=== PATIENT | female | born 2000 | race Caucasian/White ===

== ENCOUNTER 2024-04-19 05:24 | Observation (INO) | payer OTHER ==
[2024-04-19 05:55] LABS: Basophils % (A) 0 %; Eosinophils # (A) 0.2 k/uL (0-0.7); Eosinophils % (A) 1 %; HCT 38.4 % (34.0-46.0); HGB 12.6 gm/dL (11.4-16.0); Lymphocytes % (A) 14 %; MCH 31.1 pg (25.0-35.0); MCHC 32.9 g/dL (31.0-37.0); MCV 94.5 fL (80.0-100.0); Mean Platelet Volume 8.3; Monocytes # (A) 0.5 k/uL (0-1.0); Monocytes % (A) 4 %; Neutrophils # (A) 11.3 k/uL (1.3-7.7); Neutrophils % (A) 80 %; Platelet Count 195 k/uL (150-450); RBC 4.07 m/uL (3.80-5.40); RDW 12.2 % (11.5-15.5); WBC 14.2 k/uL (3.8-10.6)
[2024-04-19] MEDS: fentaNYL (PF) 50 MCG/ML 2 ML AMP IVP STA (05:59)
[2024-04-19] MEDS: SODIUM CHLORIDE 0.9% 1,000 ML IV ONE ×2 (05:59→10:07)
[2024-04-19 06:04] LABS: INR 1.1 (<1.2); Partial Thromboplastin Time 23.9 sec (22.0-30.0); Prothrombin Time 11.7 sec (10.0-12.5)
[2024-04-19 06:11] LABS: ALT 13 U/L (4-34); AST 17 U/L (14-36); African American GFR (CKD) >90 (>60 ml/min/1.73 sqM); Albumin 4.3 g/dL (3.5-5.0); Alkaline Phosphatase 63 U/L (38-126); Anion Gap 10 mmol/L; Blood Urea Nitrogen 8 mg/dL (7-17); Calcium 8.9 mg/dL (8.4-10.2); Carbon Dioxide 15 mmol/L (22-30); Chloride 108 mmol/L (98-107); Glucose 125 mg/dL (74-99); Non-African American GFR(CKD) >90 (>60 ml/min/1.73 sqM); Potassium 3.4 mmol/L (3.5-5.1); Sodium 133 mmol/L (137-145); Total Bilirubin 0.5 mg/dL (0.2-1.3); Total Protein 6.5 g/dL (6.3-8.2)
[2024-04-19] MEDS: ONDANSETRON 4 MG/2 ML VIAL IVP STA ×2 (06:17→07:35)
[2024-04-19] MEDS: ACETAMINOPHEN IV (For NPO) 1,000 MG in EMPTY BAG 1 BAG IVPB STA (06:18)
[2024-04-19 06:27] LABS: HCG,Quantitative Serum 1222.5 mIU/mL
--- NOTE | 2024-04-19 07:28 | US ---
EXAMINATION TYPE: Ultrasound OB <= 14 weeks transvaginal DATE OF EXAM: 04/19/2024 7:09 AM COMPARISON: NONE CLINICAL INDICATION: Female, 23 years old with history of heavy vaginal bleeding, 13 w preg; LMP Unkn own. Heavy bleeding x 1 day. . TECHNIQUE: Transvaginal (TV) and Transabdominal (TA) with grayscale and color Doppler imaging includi ng first trimester . FINDINGS: EXAM MEASUREMENTS: GESTATIONAL AGE / DATING Physician Established: Not yet established Dates by LMP: LMP unknown Dates by First Scan: No previous this is first scan Dates by Current Scan for: No IUP seen at this time MATERNAL ANATOMY Uterus: 11.5 x 6.9 x 5.6cm Right Ovary: 4.0 x 3.0 x 1.5cm Left Ovary: not visualized Post CDS / Adnexa: wnl Presence of free fluid: No Presence of corpus luteal cyst: Yes in rt ovary measuring 1.6 x 1.2 x 1.1cm Presence of subchorionic bleed: No GESTATION / SURVEY CRL: not seen Gestational Sac morphology: not seen Gestational Sac MSD: not seen Yolk Sac (normal less than 6mm): not seen IUP: No IUP seen at this time Date of LMP: unknown Beta HcG (if available): 1222.5 Centrifuge Separator Tender notes: Endometrium appears empty. Cervix appears to be heterogeneous and enlarged. IMPRESSION: 1. No visualized intrauterine at this time. We note a low beta hCG value. Currently, differ ential considerations include too early to visualize intrauterine , failed , and no nvisualized ectopic . Recommend serial beta hCG and ultrasound follow-up. 2. Heterogeneous thickened appearance to the cervix. Etiology unclear. Consider direct visualization and assessment with findings on Pap smear. [facility], , 04/19/2024 7:25 AM
[2024-04-19] MEDS: HYDROmorphone 1 MG/ML 1 ML SYRINGE IVP STA (07:34)
--- NOTE | 2024-04-19 07:34 | ED ---
General Adult HPI - General Chief complaint: Vaginal Bleeding Stated complaint: Vaginal Bleeding, Nausea/Vomiting Time Seen by Provider: 04/19/24 05:32 Source: patient Mode of arrival: EMS - History of Present Illness Initial comments: Hx limited by acuity of condition. Pt is a previously well 23 y/o female believed to be approximately 13 weeks presenting for vaginal bleeding x 5-6 hours. Majority history provided by patient's . Patient started having cramping in lower abdomen about 5 hours prior to arrival. She went through 3 small pads and then sat on the toilet for the next 5 hours continuing to pass large amounts of blood clots. Denies any history of allergies. Patient has had 1 prior that ended in spontaneous . Patient denies any history of bleeding or clotting disorders. - Related Data Home Medications Medication Instructions Recorded Confirmed No Known Home Medications 04/19/24 04/19/24 Allergies Allergy/AdvReac Type Severity Reaction Status Date / Time Penicillins Allergy Unknown Verified 04/19/24 05:31 Childhood Review of Systems ROS Statement: Those systems with pertinent positive or pertinent negative responses have been documented in the HPI. Limitations: ROS unobtainable due to patients medical condition Past Medical History Past Medical History: No Reported History History of Any Multi-Drug Resistant Organisms: None Reported Past Surgical History: No Surgical Hx Reported Past Psychological History: No Psychological Hx Reported Smoking Status: Vaper Past Alcohol Use History: None Reported Past Drug Use History: None Reported General Exam - General Exam Comments Initial Comments: PE: CONSTITUTIONAL: Ill-appearing, in moderate distress, pale SKIN: Pale cool, damp skin, no jaundice, hives or petechiae EYES: Pupils are equally round, extraocular movements intact without nystagmus, clear conjunctiva, non-icteric sclera HENT: Normocephalic, atraumatic, moist mucus membranes, oropharynx clear without exudates NECK: , Full range of motion, normal appearance PULMONARY: Clear to auscultation without wheezes, rhonchi, or rales, normal excursion, no accessory muscle use and no stridor CARDIOVASCULAR: Regular rate, rhythm, normal S1 and S2. No appreciated murmurs, rubs or gallops. Strong radial pulses with intact distal perfusion. No lower extremity edema GASTROINTESTINAL: Soft, active bowel sounds throughout, diffusely tender non- distended, no palpable masses, guarding present, no hepatosplenomegaly GENITOURINARY: exam performed with MIKE Pascal as grinder tender, unable to visualize cervical os, external genitalia normal, dark red blood feels speculum upon insertion into the vaginal canal, no lacerations or lesions present MUSCULOSKELETAL: Extremities have no gross deformity, no edema, redness, or swelling. No calf swelling NEUROLOGIC:_a/o x 3, GCS 15, normal mentation and speech. Moves all extremities x 4 without motor or sensory deficit PSYCHIATRIC: Tearful mood and affect, thought process is clear and linear Course Vital Signs 04/19/24 04/19/24 04/19/24 05:26 05:40 06:47 Temperature 97.7 F Pulse Rate 91 87 91 Pulse Rate [ Right] Respiratory 18 22 18 Rate Blood Pressure 114/71 111/63 111/62 Blood Pressure [Right Arm] O2 Sat by Pulse 98 100 100 Oximetry 04/19/24 04/19/24 09:16 09:17 Temperature 97.7 F Pulse Rate 70 Pulse Rate [ 59 L Right] Respiratory 18 14 Rate Blood Pressure 106/59 Blood Pressure 113/55 [Right Arm] O2 Sat by Pulse 98 100 Oximetry - Reevaluation(s) Reevaluation #2: Discussed with Dr. Whittaker, he is on his way in for D&C. Patient remains vitally stable. 04/19/24 07:33 Medical Decision Making - Medical Decision Making Was pt. sent in by a medical professional or institution (, PA, SPORTS COORDINATOR, urgent care, hospital, or [facility]...) When possible be specific @ -No Did you speak to anyone other than the patient for history (EMS, parent, family, police, friend...)? What history was obtained from this source @Spoke with patient's who assisted in providing history Did you review nursing and triage notes (agree or disagree)? Why? @ -I reviewed and agree with nursing and triage notes Were old charts reviewed (outside hosp., previous admission, EMS record, old EKG, old radiological studies, urgent care reports/EKG's, [facility]cc records)? Report findings Medical records reviewed Differential Diagnosis (chest pain, altered mental status, abdominal pain women, abdominal pain men, vaginal bleeding, weakness, fever, dyspnea, syncope, headache, dizziness, GI bleed, back pain, seizure, CVA, palpatations, mental health, musculoskeletal)? @ -Differential Vaginal Bleeding: Spontaneous , threatened , molar , ectopic , bloody show, incompetent cervix, abruptioplacenta, placenta previa, uterine rupture, dysfunctional uterine bleeding, hemorrhage, uterine fibroids , this is not meant to be an all-inclusive list. EKG interpreted by me (3pts min.). @ -As above X-rays interpreted by me (1pt min.). @ -None done CT interpreted by me (1pt min.). @ -None done U/S interpreted by me (1pt. min.). @Empty gestational sac, heterogenous material within the uterus What testing was considered but not performed or refused? (CT, X-rays, U/S, labs)? Why? @ -None What meds were considered but not given or refused? Why? @ -None Did you discuss the management of the patient with other professionals (professionals i.e. , PA, SPORTS COORDINATOR, lab, RT, psych nurse, social scientist, senior billing consultant, teacher, global chief creative officer, hospice case manager)? Give summary @This case was discussed with Dr. Whittaker, obstetrics and gynecology, appreciate recs, requests H &H, US pelvis be obtained and he be called with results, will prepare to come in; when hemoglobin resulted an ultrasound was obtained and reviewed by myself again discussed with Dr. Whittaker, who is on his way in for likely D&C. Took patient to OR for D&C. Was smoking cessation discussed for >3mins.? @ -No. Was critical care preformed (if so, how long)? @ Yes 60 minutes, frequent reassessments, ordering and interpreting labs and imaging, discussion with consultants Were there social determinants of health that impacted care today? How? (Homelessness, low income, unemployed, alcoholism, drug addiction, transportation, low edu. Level, literacy, decrease access to med. care, mcc, rehab)? @ -No Was there de-escalation of care discussed even if they declined (Discuss DNR or withdrawal of care, Hospice)? @ -No What co-morbidities impacted this encounter? (DM, HTN, Smoking, COPD, CAD, Cancer, CVA, ARF, Chemo, Hep., AIDS, mental health diagnosis, sleep apnea, morbid obesity)? @ -None Was patient admitted / discharged? Hospital course, mention meds given and route, prescriptions, significant lab abnormalities, going to OR and other pertinent info. @Admission to obstetrics and gynecology- Patient is a 23-year-old previously healthy female G2, P0 presenting today for vaginal bleeding suspected to be 13 weeks . On assessment patient is pale and ill-appearing in moderate distress, painful and tearful. Vital signs are stable on arrival, no tachycardia, hypotension or hypoxemia noted. exam performed immediately shows dark red blood in the vaginal vault, unable to visualize cervix, no lacerations or lesions within the vagina, RNNaida chaperoned exam. Bedside ultrasound showed no free fluid in the abdomen. Beta- hCG, type and cross, comprehensive labs ordered. Pain control, 1 L normal saline ordered. Despite stable vital signs given patient's pale and ill appearance 1 unit uncrossed match red blood was ordered should patient decompensate. On-call hotel front office manager was paged to come in immediately for aden svaginal ultrasound. Paged Dr. Whittaker immediately as well, see above for details. On reassessment patient remained pale and painful, VSS, Hgb 12.6, though I suspect actually lower than this as patient continues to have dark red vaginal bleeding, no prior for comparison. HCG 1222.5. Additional pain control ordered. Reviewed US, see above. Dr. Whittaker to come in to likely take patient to OR. Updated patient and to findings and plan. All questions answered. Patient taken to OR in guarded but stable condition. Undiagnosed new problem with uncertain prognosis? @ -No Drug Therapy requiring intensive monitoring for toxicity (Heparin, Nitro, Insulin, Cardizem)? @ -No Were any procedures done? @ -No Diagnosis/symptom? @Inevitable Acute, or Chronic, or Acute on Chronic? @ Acute Uncomplicated (without systemic symptoms) or Complicated (systemic symptoms)? @ complicated Side effects of treatment? @ -No Exacerbation, Progression, or Severe Exacerbation? @ -No Poses a threat to life or bodily function? How? (Chest pain, [place], NE, pneumonia, PE, COPD, DKA, ARF, appy, cholecystitis, CVA, Diverticulitis, Homicidal, Suicidal, threat to staff... and all critical care pts) @ Yes, to continue untreated bleed ultimately resulting in hemorrhagic shock and potentially - Lab Data Result diagrams: 04/20/24 06:18 04/19/24 05:34 Lab Results 04/19/24 04/19/24 04/19/24 Range/Units 05:29 05:34 05:34 WBC 14.2 H (3.8-10.6) k/uL RBC 4.07 (3.80-5.40) m/uL Hgb 12.6 (11.4-16.0) gm/dL Hct 38.4 (34.0-46.0) % MCV 94.5 (80.0-100.0) fL MCH 31.1 (25.0-35.0) pg MCHC 32.9 (31.0-37.0) g/dL RDW 12.2 (11.5-15.5) % Plt Count 195 (150-450) k/uL MPV 8.3 Neutrophils % 80 % Lymphocytes % 14 % Monocytes % 4 % Eosinophils % 1 % Basophils % 0 % Neutrophils # 11.3 H (1.3-7.7) k/uL Lymphocytes # 2.0 (1.0-4.8) k/uL Monocytes # 0.5 (0-1.0) k/uL Eosinophils # 0.2 (0-0.7) k/uL Basophils # 0.0 (0-0.2) k/uL PT (10.0-12.5) sec INR (<1.2) APTT (22.0-30.0) sec Sodium 133 L (137-145) mmol/L Potassium 3.4 L (3.5-5.1) mmol/L Chloride 108 H (98-107) mmol/L Carbon Dioxide 15 L (22-30) mmol/L Anion Gap 10 mmol/L BUN 8 (7-17) mg/dL Creatinine 0.56 (0.52-1.04) mg/dL Est GFR (CKD-EPI)AfAm >90 (>60 ml/min/1.73 sqM) Est GFR (CKD-EPI)NonAf >90 (>60 ml/min/1.73 sqM) Glucose 125 H (74-99) mg/dL Calcium 8.9 (8.4-10.2) mg/dL Total Bilirubin 0.5 (0.2-1.3) mg/dL AST 17 (14-36) U/L ALT 13 (4-34) U/L Alkaline Phosphatase 63 (38-126) U/L Total Protein 6.5 (6.3-8.2) g/dL Albumin 4.3 (3.5-5.0) g/dL HCG, Quant 1222.5 mIU/mL Blood Type B Positive Blood Type Recheck No Previous Record Bld Type Recheck Status [facility] ONLY Antibody Screen Crossmatch Spec Expiration Date 04/19/24 04/19/24 Range/Units 05:34 07:53 WBC (3.8-10.6) k/uL RBC (3.80-5.40) m/uL Hgb (11.4-16.0) gm/dL Hct (34.0-46.0) % MCV (80.0-100.0) fL MCH (25.0-35.0) pg MCHC (31.0-37.0) g/dL RDW (11.5-15.5) % Plt Count (150-450) k/uL MPV Neutrophils % % Lymphocytes % % Monocytes % % Eosinophils % % Basophils % % Neutrophils # (1.3-7.7) k/uL Lymphocytes # (1.0-4.8) k/uL Monocytes # (0-1.0) k/uL Eosinophils # (0-0.7) k/uL Basophils # (0-0.2) k/uL PT 11.7 (10.0-12.5) sec INR 1.1 (<1.2) APTT 23.9 (22.0-30.0) sec Sodium (137-145) mmol/L Potassium (3.5-5.1) mmol/L Chloride (98-107) mmol/L Carbon Dioxide (22-30) mmol/L Anion Gap mmol/L BUN (7-17) mg/dL Creatinine (0.52-1.04) mg/dL Est GFR (CKD-EPI)AfAm (>60 ml/min/1.73 sqM) Est GFR (CKD-EPI)NonAf (>60 ml/min/1.73 sqM) Glucose (74-99) mg/dL Calcium (8.4-10.2) mg/dL Total Bilirubin (0.2-1.3) mg/dL AST (14-36) U/L ALT (4-34) U/L Alkaline Phosphatase (38-126) U/L Total Protein (6.3-8.2) g/dL Albumin (3.5-5.0) g/dL HCG, Quant mIU/mL Blood Type B Positive Blood Type Recheck B Pos Bld Type Recheck Status No Antibody Screen NEGATIVE Crossmatch See Detail Spec Expiration Date 04/22/20242352 Disposition Clinical Impression: Inevitable spontaneous Disposition: ADMITTED IP TO THIS [facility] Condition: Stable
[2024-04-19] MEDS: POTASSIUM CHLORIDE 10 MEQ in WATER FOR INJECTION 1 100ML.BAG IVPB STA (07:49)
[2024-04-19] MEDS: HYDROmorphone 0.5 MG/0.5 ML SYRINGE IVP STA (08:08)
--- NOTE | 2024-04-19 08:45 | P.HPOB ---
History of Present Illness H&P Date: 04/19/24 Chief Complaint: Acute vaginal bleeding, spontaneous Patient is a 23-year-old 2 para 0-0-1-0 who is reportedly approximately 12 weeks by last menstrual period dating but has had no confirmation of intrauterine to this point. She presented to the emergency room this morning with approximately 4 to 5 hours of acute vaginal bleeding where she could not leave the toilet and had blood running into the toilet. In the emergency room, she was evaluated by the emergency room physician and found to have the vagina full of blood such that the cervix could not be visualized and the vagina kept refilling. Ultrasound demonstrated no evidence of intra intrauterine though there was some thickening in the lower uterine segment and cervix which likely represents tissue. There was no evidence of extrauterine . Hemoglobin initially was approximately 12 and the patient was hemodynamically stable though actively bleeding. She appeared unwell. As a result the plan has been made to proceed to the operating room acutely for D&C. Obstetrical history: 2 para 0-0-1-0 with current statistics listed in history of present illness. Intrauterine has not been confirmed prior to today's presentation. Previous ended in spontaneous miscarriage for which she did not require D&C. Gynecologic history: Unremarkable with no history of any infections to include STDs. Review of Systems Systems is confined to history of present illness. Past Medical History Past Medical History: No Reported History History of Any Multi-Drug Resistant Organisms: None Reported Past Surgical History: No Surgical Hx Reported Past Psychological History: No Psychological Hx Reported Smoking Status: Vaper Past Alcohol Use History: None Reported Past Drug Use History: None Reported Medications and Allergies Home Medications Medication Instructions Recorded Confirmed Type No Known Home Medications 04/19/24 04/19/24 History Allergies Allergy/AdvReac Type Severity Reaction Status Date / Time Penicillins Allergy Unknown Verified 04/19/24 05:31 Childhood Exam Vital Signs Temp Pulse Resp BP Pulse Ox 04/19/24 06:47 91 18 111/62 100 04/19/24 05:40 87 22 111/63 100 04/19/24 05:26 97.7 F 91 18 114/71 98 Intake and Output 04/18/24 04/19/24 04/19/24 22:59 06:59 14:59 Other: Weight 56.699 kg General, this is a well-developed, well-nourished white female in no current acute distress as she has been given Dilaudid. Her heart has a regular rhythm and rate without murmur. Her lungs are clear to auscultation bilaterally in all dowd. Her abdomen is nondistended, has normal active bowel sounds, soft, nontender, and without any palpable masses. Her extremities are without any cyanosis, clubbing, or edema and are nontender to palpation bilaterally. Pelvic examination is deferred to the operating room. Results Result Diagrams: 04/19/24 05:34 04/19/24 05:34 Abnormal Lab Results - Last 24 Hours (Table) 04/19/24 04/19/24 04/19/24 Range/Units 05:34 05:34 07:53 WBC 14.2 H (3.8-10.6) k/uL Neutrophils # 11.3 H (1.3-7.7) k/uL Sodium 133 L (137-145) mmol/L Potassium 3.4 L (3.5-5.1) mmol/L Chloride 108 H (98-107) mmol/L Carbon Dioxide 15 L (22-30) mmol/L Glucose 125 H (74-99) mg/dL Crossmatch See Detail Assessment and Plan (1) Incomplete Current Visit: Yes Status: Acute Code(s): O03.4 - INCOMPLETE SPONTANEOUS WITHOUT COMPLICATION SNOMED Code(s): 283443939 Plan: Given the patient's appearance and the acuity of her bleeding, she will be taken to the operating room for dilation and curettage. The risks and complications were discussed with both the patient and her though the patient is somewhat sedated. All the concerns were understood and they have agreed to proceed. Assuming the patient remains hemodynamically stable in the postoperative phase, she will be discharged to home to follow-up in the office in 2 weeks.
[2024-04-19] MEDS: IV FLUID CONTINUATION 1,000 ML IV ONE (09:09)
[2024-04-19] MEDS ORDERED: ALBUMIN HUMAN 5% (12.5gm) 250 ML BOTTLE IVPB ONE (09:18)
[2024-04-19] MEDS ORDERED: PROPOFOL 10 MG/ML 20 ML VIAL IV ONE (09:18)
[2024-04-19] MEDS ORDERED: PHENYLEPHRINE 10 MG/ML VIAL ONE (09:18)
[2024-04-19] MEDS ORDERED: MIDAZOLAM 2 MG/2 ML VIAL ONE (09:18)
[2024-04-19] MEDS ORDERED: METHYLERGONOVINE 0.2 MG/ML 1 ML AMP ONE (09:18)
[2024-04-19] MEDS: LACTATED RINGERS 1,000 ML IV ONE (10:05)
[2024-04-19] MEDS ORDERED: ONDANSETRON 4 MG/2 ML VIAL IVP PRN (10:21)
[2024-04-19] MEDS ORDERED: ACETAMINOPHEN TAB 325 MG TAB PO PRN (10:21)
[2024-04-19] MEDS ORDERED: METOCLOPRAMIDE 5 MG/ML 2 ML VIAL IVP PRN (10:21)
[2024-04-19] MEDS ORDERED: diphenhydrAMINE 25 MG CAP PO PRN (10:21)
[2024-04-19] MEDS ORDERED: diphenhydrAMINE 50 MG/ML 1 ML VIAL IVP PRN (10:21)
[2024-04-19] MEDS ORDERED: IBUPROFEN 600 MG TAB PO PRN (10:21)
[2024-04-19] MEDS ORDERED: SIMETHICONE 80 MG CHEWABLE PO PRN (10:21)
[2024-04-19] MEDS ORDERED: KETOROLAC 15 MG/ML 1 ML VIAL IVP PRN (10:21)
[2024-04-19 10:22] LABS: Basophils % (A) 0 %; Eosinophils # (A) 0.1 k/uL (0-0.7); Eosinophils % (A) 1 %; HCT 27.6 % (34.0-46.0); Lymphocytes # (A) 1.4 k/uL (1.0-4.8); Lymphocytes % (A) 8 %; MCH 31.9 pg (25.0-35.0); MCHC 33.6 g/dL (31.0-37.0); MCV 94.9 fL (80.0-100.0); Mean Platelet Volume 8.1; Monocytes # (A) 0.4 k/uL (0-1.0); Monocytes % (A) 2 %; Neutrophils # (A) 15.3 k/uL (1.3-7.7); Neutrophils % (A) 89 %; Platelet Count 199 k/uL (150-450); RBC 2.91 m/uL (3.80-5.40); RDW 12.3 % (11.5-15.5); WBC 17.2 k/uL (3.8-10.6)
[2024-04-19 10:29] LABS: HGB 9.3 gm/dL (11.4-16.0)
--- NOTE | 2024-04-19 10:32 | P.OP ---
Date of Procedure: 04/19/24 Preoperative Diagnosis: #1. Acute vaginal bleeding #2. First trimester incomplete Postoperative Diagnosis: Same plus #3. Acute blood loss Procedure(s) Performed: #1. Dilation and aspiration curettage Anesthesia: other (General By LMA) Surgeon: Sherry Procedures & Infusion Estimated Blood Loss (ml): 600 IV fluids (ml): 1,500 Urine output (ml): 3 Pathology: other (Products of conception, endometrial contents) Condition: stable Disposition: PACU Operative Findings: The patient presented to the ER where she had had significant amount of ongoing heavy blood flow and, despite a normal hemoglobin and stable vital signs, appeared unwell. She was taken to the operating room where under anesthesia she was found to have the majority of the protruding through the cervix. This was removed with a ring forceps and appeared to be intact. Following removal of the tissue, she had significant ongoing vaginal bleeding which did not slow with aspiration curettage. She was given a dose of intramuscular Methergine 0.2 mg and observed over the next 5 minutes which again failed to significantly slow the bleeding. She was then given 1000 mg of rectal Cytotec and observed. After approximately 5 minutes her bleeding began to significantly slow down and was thought to be at that point reasonably well-managed. In the meantime, the patient had had significant IV fluid resuscitation as well as 500 mL of albumin. She had previously had 1 unit of packed red blood cells typed and crossed and that was now ordered to be given along with a second unit. At the time that I left the patient, her uterus and cervix were significantly more firm than they had been during the entire case and ongoing bleeding was fairly minimal. I believe there is a significant concern for undiagnosed bleeding dyscrasia and/or possible clotting factor deficiency. Description of Procedure: The patient was prepped and draped in usual fashion after general anesthesia was administered by the anesthesiologist. A weighted speculum was placed in the was seen protruding through the cervix. It was grasped with a ring forceps and teased out and appeared to be complete. There was a moderate amount of ongoing bleeding at that time. A #8 aspiration curette was placed to the fundus of the uterus after sounding the uterus to 9 cm. Thorough and circumferential aspiration curettage was carried out from the fundus to the cervix with no tissue seen passing through the tubing. A large sharp curette was then utilized to thoroughly and circumferentially curette the uterus with the typical gritty texture encountered throughout. The patient continued to have significant amount of ongoing bleeding. A 1 last pass was made with the aspiration curette. Methergine was called for and shortly thereafter administered. Manual massage of the uterus demonstrated it to be fairly boggy. As bleeding continued, Cytotec 1000 mg was ordered and, when it arrived, was placed rectally. Further thorough endometrial massage was carried out and the uterus seemed to firm a fair amount and bleeding began to slow. In the meantime, anesthesia had significantly increased IV fluids and began the process of giving 500 mL of albumin. The previously ordered unit of blood was called for and was to be transfused when it arrived. A second unit was also ordered. Continued observation demonstrated that the uterus continued to firm and have significantly less bleeding. Ultimately the procedure was terminated and all instrumentation removed. Estimated blood loss for the case was approximately 600 mL. There were no specific complications of the procedure aside from the acute hemorrhage. All sponge, instrument, and needle counts were correct. The patient tolerated the procedure well and proceeded to the recovery room in currently stable condition.
--- NOTE | 2024-04-19 15:32 | P.CONS ---
History of Present Illness - Reason for Consult Consult date: 04/19/24 acute blood loss post D&C Requesting physician: Will Whittaker - Chief Complaint menorrhagia - History of Present Illness Mrs. Ortiz is a pleasant 23-year-old female who we have been asked to see because of hemorrhage post D&C for spontaneous . This is patient's s econd ending in miscarriage. Patient came to the emergency room with complaints of vaginal bleeding for about 4 to 5 hours, persistent, concerning as she was beginning to feel progressively unwell. Patient was seen by Dr. Whittaker, patient was actively miscarrying with significant bleeding. Patient was given Methergine and rectal Cytotec with slowing of bleeding. Ultimately D&C was performed. When seen in the room patient is still noting blood in the toilet, significantly less blood on pad, nursing is monitoring patient closely. Review of Systems Focused review of systems is as stated in HPI Past Medical History Past Medical History: No Reported History Additional Past Medical History / Comment(s): Spontaneous miscarriage x 2 History of Any Multi-Drug Resistant Organisms: None Reported Past Surgical History: No Surgical Hx Reported Past Psychological History: No Psychological Hx Reported Smoking Status: Vaper Past Alcohol Use History: None Reported Past Drug Use History: None Reported Medications and Allergies Home Medications Medication Instructions Recorded Confirmed Type No Known Home Medications 04/19/24 04/19/24 History Allergies Allergy/AdvReac Type Severity Reaction Status Date / Time Penicillins Allergy Unknown Verified 04/19/24 05:31 Childhood Physical Exam Vitals: Vital Signs Temp Pulse Pulse Pulse Pulse Resp BP 04/19/24 13:23 98 F 60 16 106/60 04/19/24 13:10 98 F 60 16 04/19/24 13:03 97.5 F L 60 16 106/60 04/19/24 12:50 66 16 04/19/24 12:41 99 F 67 16 99/61 04/19/24 12:20 67 16 04/19/24 12:05 16 L 64 16 04/19/24 11:50 99 F 63 16 04/19/24 11:23 97.8 F 69 16 97/50 04/19/24 11:15 59 L 16 04/19/24 11:02 97.2 F L 71 16 97/52 04/19/24 11:00 88 14 04/19/24 10:45 74 14 04/19/24 10:42 98.1 F 82 16 99/48 04/19/24 10:30 97.7 F 86 14 04/19/24 09:17 97.7 F 59 L 14 04/19/24 09:16 70 18 106/59 04/19/24 06:47 91 18 111/62 04/19/24 05:40 87 22 111/63 04/19/24 05:26 97.7 F 91 18 114/71 BP Pulse Ox 04/19/24 13:23 100 04/19/24 13:10 106/60 100 04/19/24 13:03 04/19/24 12:50 98/61 04/19/24 12:41 04/19/24 12:20 99/61 100 04/19/24 12:05 101/61 99 04/19/24 11:50 114/66 100 04/19/24 11:23 100 04/19/24 11:15 95/53 99 04/19/24 11:02 100 04/19/24 11:00 106/51 100 04/19/24 10:45 108/54 100 04/19/24 10:42 100 04/19/24 10:30 94/42 100 04/19/24 09:17 113/55 100 04/19/24 09:16 98 04/19/24 06:47 100 04/19/24 05:40 100 04/19/24 05:26 98 Intake and Output 04/19/24 04/19/24 04/19/24 06:59 14:59 22:59 Intake Total 2860 Output Total 603 Balance 2257 Intake: IV 2550 Blood Product 310 Rc As-1 Unit 310 [id number] Rc As-1 Unit 0 [id number] Output: Urine 3 Estimated Blood Loss 600 Other: Weight 56.699 kg - Constitutional General appearance: average body habitus, cooperative, no acute distress - EENT Eyes: anicteric sclerae, EOMI ENT: hearing grossly normal - Respiratory Respirations even and unlabored - Cardiovascular Radial pulse 2+ palpable, skin warm, well-perfused leg Peripheral Edema: bilateral: None - Gastrointestinal Exam deferred due to recent events - Neurologic Neurologic: CNII-XII intact - Musculoskeletal Musculoskeletal: strength equal bilaterally - Psychiatric Psychiatric: A&O x's 3, appropriate affect, intact judgment & insight Results CBC & Chem 7: 04/19/24 10:13 04/19/24 05:34 Labs: Abnormal Lab Results - Last 24 Hours (Table) 04/19/24 04/19/24 04/19/24 Range/Units 05:34 05:34 07:53 WBC 14.2 H (3.8-10.6) k/uL RBC (3.80-5.40) m/uL Hgb (11.4-16.0) gm/dL Hct (34.0-46.0) % Neutrophils # 11.3 H (1.3-7.7) k/uL Sodium 133 L (137-145) mmol/L Potassium 3.4 L (3.5-5.1) mmol/L Chloride 108 H (98-107) mmol/L Carbon Dioxide 15 L (22-30) mmol/L Glucose 125 H (74-99) mg/dL Crossmatch See Detail 04/19/24 Range/Units 10:13 WBC 17.2 H (3.8-10.6) k/uL RBC 2.91 L (3.80-5.40) m/uL Hgb 9.3 L D (11.4-16.0) gm/dL Hct 27.6 L (34.0-46.0) % Neutrophils # 15.3 H (1.3-7.7) k/uL Sodium (137-145) mmol/L Potassium (3.5-5.1) mmol/L Chloride (98-107) mmol/L Carbon Dioxide (22-30) mmol/L Glucose (74-99) mg/dL Crossmatch Assessment and Plan (1) Menorrhagia Current Visit: Yes Status: Acute Priority: High Code(s): N92.0 - EXCESSIVE AND FREQUENT MENSTRUATION WITH REGULAR CYCLE SNOMED Code(s): 500773495 (2) Miscarriage Current Visit: Yes Status: Acute Priority: High Code(s): O03.9 - COMPLETE OR UNSP SPONTANEOUS WITHOUT COMPLICATION SNOMED Code(s): 53435424 Plan: Menorrhagia -2/2 to miscarriage of -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 -No further medications interventions, at this time, from a Hematology standpoint. Monitor Hgb for appropriate response to PRBCs. Vaginal bleeding is being closely monitored as well. Miscarriage -This is sadly the second to miscarriage for this 23-year-old female. Suspicions are that patient has some sort of blood disorder, highly suspect for the same. -Will plan for a follow-up with [facility] about 6 to 8 weeks from now so that any laboratory investigations will not be skewed by current events. All of the above was discussed with the patient and her at the bedside they verbalized understanding the recommendations
[2024-04-19] MEDS: LACTATED RINGERS 1,000 ML IV SCH (15:38)
[2024-04-19 22:17] LABS: Basophils % (A) 0 %; Eosinophils % (A) 0 %; HCT 33.8 % (34.0-46.0); HGB 11.5 gm/dL (11.4-16.0); Lymphocytes # (A) 0.9 k/uL (1.0-4.8); Lymphocytes % (A) 10 %; Monocytes # (A) 0.4 k/uL (0-1.0); Monocytes % (A) 5 %; Neutrophils % (A) 85 %; Platelet Count 179 k/uL (150-450); WBC 9.5 k/uL (3.8-10.6)
[2024-04-20 06:31] LABS: Basophils % (A) 0 %; Eosinophils % (A) 0 %; HCT 30.6 % (34.0-46.0); HGB 10.3 gm/dL (11.4-16.0); Lymphocytes # (A) 2.4 k/uL (1.0-4.8); Lymphocytes % (A) 28 %; MCH 30.9 pg (25.0-35.0); MCHC 33.7 g/dL (31.0-37.0); MCV 91.6 fL (80.0-100.0); Monocytes # (A) 0.4 k/uL (0-1.0); Monocytes % (A) 5 %; Neutrophils # (A) 5.5 k/uL (1.3-7.7); Neutrophils % (A) 65 %; Platelet Count 185 k/uL (150-450); RBC 3.34 m/uL (3.80-5.40); RDW 13.6 % (11.5-15.5); WBC 8.4 k/uL (3.8-10.6)
[2024-04-20 08:23] VITALS: BP 122/64; PULSE 77; RESP 20; TEMP 98.2
--- NOTE | 2024-04-20 08:47 | P.DS ---
Providers Date of admission: 04/19/24 10:12 Expected date of discharge: 04/20/24 Attending physician: Will Whittaker Consults: 04/19/24 10:46 Consult Physician Routine Consulting Provider: Steven Maharaj Consult Reason/Comments: Acute blood loss from emergent D&C Do you want consulting provider notified?: Yes Primary care physician: Stated None - Discharge Diagnosis(es) (1) Status post D&C Current Visit: Yes Status: Acute Hospital Course: Pt presented with incomplete . She underwent suction D&C. POst operatively she continues to have minimal to moderate bleeding. Discussed what to expect at home. She will be discharged home POD #1 in stable condition to follow up in 3-4 weeks. Plan - Discharge Summary New Discharge Prescriptions: No Action No Known Home Medications Discharge Medication List No Known Home Medications 04/19/24 [History] Follow up Appointment(s)/Referral(s): [facility] [NON-STAFF] - 1-2 days [facility] [NON-STAFF] - 1-2 days None,Stated [Primary Care Provider] - 1-2 days Will Whittaker MD [STAFF PHYSICIAN] - 3 Weeks Discharge/Stand Alone Forms: Area PCPs Discharge Disposition: HOME SELF-CARE
== END 2024-04-20 10:00 | disposition home or self-care (01) ==
LOC: EC 05:24 → 4FBP 10:12
PROVIDERS: ADMIT Obstetrics & Gynecology; ATTEND Obstetrics & Gynecology
DX: O03.4 Incomplete spontaneous abortion without complication (principal); O03.1 Delayed or excessive hemorrhage following incomplete spontaneous abortion; F17.290 Nicotine dependence, other tobacco product, uncomplicated; Z88.0 Allergy status to penicillin
CPT/HCPCS: 59812; 36430; 96376; 96365; 96367; 96375; 99285; 36415; 86900; 86901; 88305; 80053; 85025 ×2; 85610; 85730; 86850; 86920; 84702; 76801; 76817; G0378 ×2; P9016; P9045; J2250; J2210; J2405; J3010; J1171 ×2; J3480; J0131; J2704; J2371